=== PATIENT | female | born 1980 ===

== ENCOUNTER → 2019-01-31 | Emergency (ER) | payer OTHER ==
[~2019-01-31] MED LIST: Lidocaine Viscous Sol 2% 15 ml UD Cup ONE; Mag-Al Plus 1200 MG/1200 MG/120 MG/30 ML UDCUP ONE
== END ==
LOC: BURERS 01:13
DX: R10.13 Epigastric pain (principal); K21.9 Gastro-esophageal reflux disease without esophagitis
CPT/HCPCS: 93005